=== PATIENT | male | born 1995 | race Caucasian/White ===

== ENCOUNTER 2020-04-09 19:35 | Emergency (ER) | payer BC, OTHER ==
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
[2020-04-09 20:00] VITALS: BP 120/82; PULSE 85
[2020-04-09 21:26] VITALS: O2SAT 98
== END 2020-04-09 19:59 | disposition home or self-care (01) ==
LOC: ED 19:35
DX: Z04.1 Encounter for examination and observation following transport accident (principal); V89.2XXA Person injured in unspecified motor-vehicle accident, traffic, initial encounter; Y93.89 Activity, other specified; Y92.89 Other specified places as the place of occurrence of the external cause
CPT/HCPCS: 99284